=== PATIENT | male | born 1970 | race Caucasian/White ===

== ENCOUNTER 2018-07-19 15:48 | Observation (INO) ==
[2018-07-19] MEDS ORDERED: Tetanus/Diphtheria Toxoid Adult Vaccine Inj 0.5 ML Vial IM ONE (18:27)
[2018-07-19] MEDS ORDERED: Lidocaine 1% Inj 50 ML Vial INFILTRATN ONE (18:27)
[2018-07-19] MEDS ORDERED: Morphine Inj 4 MG/ML Vial IV.PUSH ONE ×2 (18:27→20:53)
[2018-07-19] MEDS ORDERED: Clindamycin 600 mg/NS Premix 600 MG/50 ML PIGGYBACK IV.SIG ONE (18:29)
[2018-07-19] MEDS ORDERED: Piperacil/Tazo 3.375 GM Premix 50 ML IV.SIG ONE (18:55)
[2018-07-19] MEDS ORDERED: Vancomycin Inj 1,000 MG in Sodium Chlor 0.9% Inj 250 ML IV.SIG ONE (18:55)
--- NOTE | 2018-07-19 18:57 | XR ---
EXAM DATE: 07/19/2018 6:52 PM EST AGE/SEX: 47 years / Male INDICATIONS: Right hand pain and swelling near 1st digit mcpj after getting a splinter in his skin t here a few days ago. CLINICAL DATA: This is the patient's initial encounter. Patient reports that signs and symptoms have been present for 4 - 6 days and indicates a pain score of 8/10. MEDICAL/SURGICAL HISTORY: None. None. COMPARISON: No prior exams available for comparison. FINDINGS: Soft tissue swelling is noted between first and second digits. No radiopaque foreign body is noted. O ld healed fracture involving the right fifth metacarpal is noted. There is no acute fracture or dislo cation. CONCLUSION: 1. Soft tissue swelling between the first and second digits with no evidence of radiopaque foreign b radha. 2. No acute fracture or dislocation. Electronically signed by: Walter Parmar MD 07/19/2018 6:55 PM EST
[2018-07-19 19:02] LABS: Baso # (Auto) 0.1 th/mm3 (0.0-0.2); Baso % (Auto) 0.5 % (0.0-2.0); Eos # (Auto) 0.2 th/mm3 (0.0-0.4); Eos % (Auto) 2.1 % (0.0-4.0); Hematocrit 46.2 % (39.0-51.0); Hemoglobin 15.8 gm/dL (13.0-17.0); Lymph # (Auto) 1.9 th/mm3 (1.0-4.8); Lymph % (Auto) 18.5 % (9.0-44.0); Mean Corpuscular HGB Conc 34.3 % (32.0-36.0); Mean Corpuscular Hemoglobin 32.5 pg (27.0-34.0); Mean Corpuscular Volume 94.9 fL (80.0-100.0); Mean Platelet Volume 7.9 fL (7.0-11.0); Mono # (Auto) 1.1 th/mm3 (0.0-0.9); Mono % (Auto) 10.8 % (0.0-8.0); Neut # (Auto) 6.9 th/mm3 (1.8-7.7); Neut % (Auto) 68.1 % (16.0-70.0); Platelet Count 193 th/mm3 (150-450); Red Blood Count 4.87 mil/mm3 (4.50-5.90); White Blood Count 10.1 th/mm3 (4.0-11.0)
[2018-07-19 19:20] LABS: Carbon Dioxide 28.5 meq/L (21.0-32.0); Potassium 4.5 meq/L (3.5-5.1)
[2018-07-19] MEDS ORDERED: Gadobutrol PF 10 MMOL/10 ML Vial (for RAD) IV.SIG ONE (20:03)
--- NOTE | 2018-07-19 20:22 | MR ---
EXAM DATE: 07/19/2018 8:15 PM EST AGE/SEX: 47 years / Male INDICATIONS: Abscess. Right hand pain and swelling near 1st digit mcp joint after getting a splin ter in his skin there a few days ago. CLINICAL DATA: This is the patient's initial encounter. Patient reports that signs and symptoms have been present for 1 day and indicates a pain score of 6/10. MEDICAL/SURGICAL HISTORY: None. Tonsillectomy. Pyloric stenosis. Eye muscle attachement.Ulnar n erve repair. COMPARISON: [facility], HAND COMPLETE RIGHT MIN 3V, 07/19/2018. . TECHNIQUE: Multiplanar, multisequence MRI examination was performed without contrast and after the i ntravenous administration of 10cc ml Omniscan (gadodiamide) contrast as a single exam dose. FINDINGS: Marrow: There is homogeneous signal in the marrow of the visualized bones of the hand. Metacarpal-Phalangeal Joints: The MCP joints are unremarkable with no evidence of erosion, effusion, or malalignment. Interphalangeal Joints: The PIP and DIP joints are unremarkable with no evidence of erosion, effusio n or malalignment. Extensor Tendons: The visualized extensor tendons are intact. Flexor Tendons: The visualized flexor tendons are intact. Soft Tissues: Mild diffuse soft tissue edema involving the palmar aspect of the hand most notably me dially. Post Contrast: There are no abnormal areas of enhancement in the marrow, muscle or soft tissues on i mages obtained after intravenous administration of gadolinium. CONCLUSION: 1. Findings most consistent with cellulitis involving the medial plantar aspect of the hand. 2. No evidence for abscess or osteomyelitis. Electronically signed by: Nitin Hernandez MD 07/19/2018 8:21 PM EST
[2018-07-19] MEDS ORDERED: Ketorolac Inj 30 MG/ML (IVP) Vial IV.PUSH ONE (20:53)
--- NOTE | 2018-07-19 21:05 | P.HPFP ---
History of Present Illness Primary Care Physician: UNKNOWN <Dale Houston - 07/21/18 14:11> UNKNOWN <Yue Clinton - 07/19/18 21:05> History of Present Illness: Mr. Avina is a 47yom who presents for infection of the R hand. Last Saturday he got a splinter at the base of his R thumb, pulled a small piece of it out. Used hot soaks, peroxide, neosporin, Aleve for relief. morning he noted that it began to get more swollen, draining pus. This evening it began to get erythematous, decreased movement of the thumb. Denies any fevers, nausea, cough. 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, sober x12 years Drugs:None <Yue Clinton 07/19/18 21:40> - Diagnosis (1) Cellulitis of hand <Dale Houston - 07/21/18 14:11> (1) Cellulitis of hand <Yue Clinton 07/19/18 22:12> Review of Systems Constitutional: Denies chills, Denies fever(s) <Yue Clinton 07/19/18 21:40 > Cardiovascular: Denies chest pain, Denies fainting <Yue Clinton 07/19/18 21:40> Respiratory: Denies cough, Denies shortness of breath <Yue Clinton 21:40> Gastrointestinal: Denies nausea, Denies vomiting <Yue Clinton 07/19/18 21: 40> PMFSH - History History Provided By: Patient <Yue Clinton - 07/19/18 21:05> - Medical History Medical History: Medical History (Last Reviewed 07/19/18 @ 21:06 by MARIZA Valentino) Patient denies medical problems Pyloric stenosis <Dale Houston - 07/21/18 14:11> Medical History (Last Reviewed 07/19/18 @ 21:06 by MARIZA Valentino) Patient denies medical problems Pyloric stenosis <Yue Clinton 07/19/18 21:40> - Surgical History Surgical History: Surgical History (Last Reviewed 07/19/18 @ 21:06 by MARIZA Valentino) History of tonsillectomy <Dale Houston - 07/21/18 14:11> Surgical History (Last Reviewed 07/19/18 @ 21:06 by MARIZA Valentino) History of tonsillectomy <Yue Clinton 07/19/18 21:40> - Tobacco History Second Hand Smoke Exposure: No <Yue Clinton 07/19/18 21:05> Tobacco Use In Past 30 Days: Yes <Yue Clinton 07/19/18 21:05> Smoking Status: Current every day smoker <Yue Clinton 07/19/18 21:05> Tobacco Type: Smokeless Tobacco <Yue Clinton 07/19/18 21:05> - Alcohol History How Often Do You Have a Drink Containing Alcohol: Never <Yue Clinton 07/19 21:05> - Substance Use History Substance History: No History of Abuse <Yue Clinton 07/19/18 21:05> - Travel History Recent Travel in the [place] Within the Last 8 Weeks: No <Yue Clinton 21:05> Recent Travel Out of the Country Within the Last 8 Weeks: No <Yue Clinton 07/19/18 21:05> - Immunization History Tetanus Immunization: >5 Years <Yue Clinton 07/19/18 21:05> Medications and Allergies Allergies Allergy/AdvReac Type Severity Reaction Status Date / Time No Known Allergies Allergy Verified 07/19/18 16:00 <Dale Houston - 07/21/18 14:11> Home Medications Medication Instructions Recorded Confirmed Type No Known Home Medications 07/19/18 07/19/18 History <Dale Houston - 07/21/18 14:11> Active Medications: Active Medications Acetaminophen (Tylenol) 650 mg PO Q4H PRN PRN Reason: PAIN 1-10 OR TEMP > 100.4 F Hydrocodone Bitart/Acetaminophen (Miller 5/325) 1 tab PO Q4H PRN PRN Reason: PAIN SCALE 3 TO 5 Last Admin: 07/21/18 13:51 Dose: 1 tab Al Hydroxide/Mg Hydroxide (Milk Of Magnmiguelito Liq) 30 ml PO Q12H PRN PRN Reason: Mild Constipation Piperacillin/Tazobactam/Dextrose (Zosyn 3.375 Gm Premix) 50 mls @ 100 mls/hr IV.SIG Q6H [facility] Last Infusion: 07/21/18 10:38 Dose: Infused Vancomycin HCl 1,250 mg/ (Sodium Chloride) 262.5 mls @ 250 mls/hr IV.SIG Q12H [facility] Last Infusion: 07/21/18 04:44 Dose: Infused Miscellaneous Information ([facility] Ordered Lab Info) 0 each OTHER ONCE ONE Stop: 07/22/18 02:46 Naloxone HCl (Narcan Inj) 0.4 mg IV.PUSH UNSCH PRN PRN Reason: SEE LABEL COMMENTS Ondansetron HCl (Zofran Inj) 4 mg IV.PUSH Q6H PRN PRN Reason: NAUSEA OR VOMITING Pharmacy Profile Note (Vancomycin Consult Pharmacy) 1 each OTHER UNSCH PRN PRN Reason: Pharmacy to dose Povidone Iodine (Betadine 10% Oint) 1 applicatio TOPICAL ONCE ONE Stop: 07/21/18 15:01 Senna/Docusate Sodium (Rachel-Colace) 1 tab PO BID [facility] Last Admin: 07/21/18 09:56 Dose: 1 tab Sennosides (Senokot) 17.2 mg PO Q12H PRN PRN Reason: Moderate Constipation Sodium Chloride (Ns Flush) 2 ml IV.FLUSH BID [facility] Last Admin: 07/21/18 09:57 Dose: 2 ml Sodium Chloride (Ns Flush) 2 ml IV.FLUSH PRN PRN PRN Reason: FLUSH AFTER USING IV ACCESS <Dale Houston - 07/21/18 14:11> Exam Vital signs: Vital Signs 07/20/18 16:00 07/20/18 20:00 07/20/18 23:26 Temperature 97.9 F 97.7 F 98 F Pulse Rate 57 L 72 69 Respiratory Rate 16 17 16 Blood Pressure 136/82 142/81 H 125/76 Pulse Oximetry 98 95 96 07/21/18 04:00 07/21/18 08:00 Temperature 97.9 F 98.1 F Pulse Rate 70 65 Respiratory Rate 16 16 Blood Pressure 129/79 112/67 Pulse Oximetry 96 96 Intake & Output 07/20/18 07/21/18 07/21/18 18:59 06:59 18:59 Intake Total 966.5 / 966.5 362.5 / 362.5 50 / 50 Balance 966.5 / 966.5 362.5 / 362.5 50 / 50 Intake: IV 416.5 / 416.5 362.5 / 362.5 50 / 50 Cleocin Inj 600 MG In NS Inj 104 / 104 100 ML @ 200 mls/hr IV.SIG Q8H [facility] Rx#:[id number] Zosyn 3.375 GM Premix 50 ML @ 50 / 50 100 / 100 50 / 50 100 mls/hr IV.SIG Q6H [facility] Rx#: [id number] Vancomycin Inj 1,250 MG In NS 262.5 / 262.5 262.5 / 262.5 Inj 250 ML @ 250 mls/hr IV.SIG Q12H [facility] Rx#:[id number] Oral 550 / 550 Other: # Voids 3 Date of Last Bowel Movement 07/19/18 07/19/18 <Dale Houston - 07/21/18 14:11> Vital Signs 07/19/18 15:56 Temperature 98.5 F Pulse Rate 93 H Respiratory Rate 16 Blood Pressure 136/68 Pulse Oximetry 98 Intake & Output 07/19/18 07/19/18 07/20/18 06:59 18:59 06:59 Weight 99.79 kg <Yue Clinton - 07/19/18 21:05> Narrative: GENERAL: Adult male lying in bed, resting comfortably, no acute distress. SKIN: Erythematous area surrounding the base of the right thumb, tender to touch , open wound about 2 cm in length draining purulent material. Warmth of the thenar area. HEAD: Normocephalic. EYES: No scleral icterus. No injection or drainage. NECK: Supple, trachea midline. No JVD. CARDIOVASCULAR: Regular rate and rhythm without murmurs, gallops, or rubs. Radial pulses intact bilaterally. RESPIRATORY: Breath sounds equal bilaterally. No accessory muscle use. MUSCULOSKELETAL: No cyanosis, or edema. Decreased movement of right thumb and right fourth finger <Yue Clinton - 07/19/18 21:40> Results - Labs Result diagrams: 07/21/18 05:28 07/21/18 05:28 <Dale Houston - 07/21/18 14:11> Abnormal lab results 07/21/18 07/21/18 Range/Units 05:28 05:28 RBC 4.40 L (4.50-5.90) mil/mm3 Josephine % (Auto) 10.2 H (0.0-8.0) % Eos % (Auto) 6.8 H (0.0-4.0) % Chloride 108 H (98-107) meq/L Estimated GFR 66 L (>89) mL/min Random Glucose 114 H (74-106) mg/dL Calcium 8.0 L D (8.5-10.1) mg/dL Short CBC 07/21/18 Range/Units 05:28 WBC 5.4 (4.0-11.0) th/mm3 Hgb 14.8 (13.0-17.0) gm/dL Hct 41.8 (39.0-51.0) % Plt Count 172 (150-450) th/mm3 [facility] 07/21/18 05:28 Sodium 140 Potassium 4.5 Chloride 108 H Carbon Dioxide 26.9 BUN 17 Creatinine 1.19 Calcium 8.0 L D <Dale Houston - 07/21/18 14:11> Abnormal lab results 07/19/18 07/19/18 Range/Units 18:49 18:49 Josephine % (Auto) 10.8 H (0.0-8.0) % Josephine # (Auto) 1.1 H (0.0-0.9) th/mm3 Estimated GFR 61 L (>89) mL/min Short CBC 07/19/18 Range/Units 18:49 WBC 10.1 (4.0-11.0) th/mm3 Hgb 15.8 (13.0-17.0) gm/dL Hct 46.2 (39.0-51.0) % Plt Count 193 (150-450) th/mm3 [facility] 07/19/18 18:49 Sodium 139 Potassium 4.5 Chloride 105 Carbon Dioxide 28.5 BUN 17 Creatinine 1.28 Calcium 9.0 <Yeu Clinton - 07/19/18 21:05> - Imaging Impressions Hand X-Ray 07/19/18 18:29 CONCLUSION: 1. Soft tissue swelling between the first and second digits with no evidence of radiopaque foreign body. 2. No acute fracture or dislocation. Hand MRI 07/19/18 18:54 CONCLUSION: 1. Findings most consistent with cellulitis involving the medial plantar aspect of the hand. 2. No evidence for abscess or osteomyelitis. <Yue Clinton - 07/19/18 21:05> Caprini VTE Risk Assessment Caprini VTE Risk Assessment: No/Low Risk (score <= 1) <Yue Clinton - 21:40> Caprini Risk Assessment Model: Point Value = 1 Point Value = 2 Point Value = 3 Point Value = 5 Age 41-60 Minor surgery BMI > 25 kg/m2 Swollen legs Varicose veins or History of unexplained or recurrent spontaneous Oral contraceptives or hormone replacement Sepsis (< 1 month) Serious lung disease, including pneumonia (< 1 month) Abnormal pulmonary function Acute myocardial infarction Congestive heart failure (< 1 month) History of inflammatory bowel disease Medical patient at bed rest Age 61-74 Arthroscopic surgery Major open surgery (> 45 min) Laparoscopic surgery (> 45 min) Malignancy Confined to bed (> 72 hours) Immobilizing plaster cast Central venous access Age >= 75 History of VTE Family history of VTE Factor V Leiden Prothrombin [id number] Lupus anticoagulant Anticardiolipin antibodies Elevated serum homocysteine Heparin-induced thrombocytopenia Other congenital or acquired thrombophilia Stroke (< 1 month) Elective arthroplasty Hip, pelvis, or leg fracture Acute spinal cord injury (< 1 month) <Dale Houston - 07/21/18 14:11> Point Value = 1 Point Value = 2 Point Value = 3 Point Value = 5 Age 41-60 Minor surgery BMI > 25 kg/m2 Swollen legs Varicose veins or History of unexplained or recurrent spontaneous Oral contraceptives or hormone replacement Sepsis (< 1 month) Serious lung disease, including pneumonia (< 1 month) Abnormal pulmonary function Acute myocardial infarction Congestive heart failure (< 1 month) History of inflammatory bowel disease Medical patient at bed rest Age 61-74 Arthroscopic surgery Major open surgery (> 45 min) Laparoscopic surgery (> 45 min) Malignancy Confined to bed (> 72 hours) Immobilizing plaster cast Central venous access Age >= 75 History of VTE Family history of VTE Factor V Leiden Prothrombin [id number] Lupus anticoagulant Anticardiolipin antibodies Elevated serum homocysteine Heparin-induced thrombocytopenia Other congenital or acquired thrombophilia Stroke (< 1 month) Elective arthroplasty Hip, pelvis, or leg fracture Acute spinal cord injury (< 1 month) <Yue Clinton - 07/19/18 21:05> Prophylaxis Regimen: Total Risk Factor Score Risk Level Prophylaxis Regimen 0-1 Low Early ambulation 2 Moderate Order ONE of the following: *Sequential Compression Device (SCD) *Heparin 5000 units SQ BID 3-4 Higher Order ONE of the following medications: *Heparin 5000 units SQ TID *Enoxaparin/Lovenox 40 mg SQ daily (WT < 150 kg, CrCl > 30 mL/min) *Enoxaparin/Lovenox 30 mg SQ daily (WT < 150 kg, CrCl > 10-29 mL/min) *Enoxaparin/Lovenox 30 mg SQ BID (WT < 150 kg, CrCl > 30 mL/min) AND/OR *Sequential Compression Device (SCD) 5 or more Highest Order ONE of the following medications: *Heparin 5000 units SQ TID (Preferred with Epidurals) *Enoxaparin/Lovenox 40 mg SQ daily (WT < 150 kg, CrCl > 30 mL/min) *Enoxaparin/Lovenox 30 mg SQ daily (WT < 150 kg, CrCl > 10-29 mL/min) *Enoxaparin/Lovenox 30 mg SQ BID (WT < 150 kg, CrCl > 30 mL/min) AND *Sequential Compression Device (SCD) <Dale Houston - 07/21/18 14:11> Total Risk Factor Score Risk Level Prophylaxis Regimen 0-1 Low Early ambulation 2 Moderate Order ONE of the following: *Sequential Compression Device (SCD) *Heparin 5000 units SQ BID 3-4 Higher Order ONE of the following medications: *Heparin 5000 units SQ TID *Enoxaparin/Lovenox 40 mg SQ daily (WT < 150 kg, CrCl > 30 mL/min) *Enoxaparin/Lovenox 30 mg SQ daily (WT < 150 kg, CrCl > 10-29 mL/min) *Enoxaparin/Lovenox 30 mg SQ BID (WT < 150 kg, CrCl > 30 mL/min) AND/OR *Sequential Compression Device (SCD) 5 or more Highest Order ONE of the following medications: *Heparin 5000 units SQ TID (Preferred with Epidurals) *Enoxaparin/Lovenox 40 mg SQ daily (WT < 150 kg, CrCl > 30 mL/min) *Enoxaparin/Lovenox 30 mg SQ daily (WT < 150 kg, CrCl > 10-29 mL/min) *Enoxaparin/Lovenox 30 mg SQ BID (WT < 150 kg, CrCl > 30 mL/min) AND *Sequential Compression Device (SCD) <Yue Clinton - 07/19/18 21:05> Assessment and Plan - Assessment (1) Cellulitis of hand Code(s): L03.119 - Cellulitis of unspecified part of limb Status: Acute <Dale Houston - 07/21/18 14:11> (1) Cellulitis of hand Code(s): L03.119 - Cellulitis of unspecified part of limb Status: Acute Plan: Purulent drainage of wound at base of right thumb, palmar aspect. Hand MRI showing findings consistent with cellulitis with no evidence of abscess or osteomyelitis. Ed physician spoke with Dr. Holt who plans to evaluate patient in the a.m. Patient given 1 dose of Zosyn 3.375 g and vancomycin 1 g in ED Received tetanus booster in ED -Clindamycin 600 mg every 8 hours IV -Acetaminophen 650 mg every 4 hours as needed for fever/ pain -Miller 5/325 every 4 hours as needed for pain -N.p.o. after midnight -Follow-up Dr. Holt's recommendations in the a.m. -Follow-up blood cultures <Yue Clinton - 07/19/18 22:12> - Assessment and Plan Discussed Condition With: Dr Yusuf <Yue Clinton - 07/19/18 21:40> - Attending Attestation See the residents documentation for details. I saw and evaluated the patient regarding the nolasco portions of this evaluation and agree with the residents findings and plans as written. Parts of this note were created using [employer] voice recognition software program. While efforts were made to correct any mistakes made by this software, some mistakes, errors, and omissions may remain in the final note that were not caught when the note was originally created. Plan of care was discussed and agreed upon with the patient as specifically documented in the above note. An opportunity to ask questions with explanation was provided. Patient voiced understanding on all information reviewed and discussed. <Dale Houston - 07/21/18 14:11>
--- NOTE | 2018-07-19 21:11 | ED ---
HPI General Chief Complaint: Extremity Injury, Upper Stated Complaint: R hand Swelling Time Seen by Provider: 07/19/18 16:02 Source: patient and family Mode of arrival: ambulatory Limitations: no limitations History of Present Illness HPI narrative: 47-year-old male presents to the ED for evaluation of right hand infection. Patient reports that he has had this for about 1 week now. Per patient about a week ago he was at a local hardware store and he was holding a piece of wood. Per patient he believes he got a splinter into his hand. Per patient he believes there were 2 pieces and he was able to remove one but he believes that he still had one inside. Ever since has been having redness and swelling on the wound. Per patient needs progressively getting worse worse today. He has been having drainage from the wound on the webspace between the first and second digit. Denies any trauma other than stated above. Per patient the pain currently is 8 out of 10. Denies any fevers chills or sweats. No history of IV drug abuse. No medical issues. No urinary or bowel movement issues. Per patient the swelling has progressed to the rest. Has not seen anybody for this. No numbness, tingling, weakness. Related Data Home Medications Medication Instructions Recorded Confirmed No Known Home Medications 07/19/18 07/19/18 Allergies Allergy/AdvReac Type Severity Reaction Status Date / Time No Known Allergies Allergy Verified 07/19/18 16:00 Review of Systems ROS: all other systems reviewed are negative [facility] Medical History Medical History Patient denies medical problems (Acute) Pyloric stenosis (Acute) Surgical History Surgical History History of tonsillectomy (Acute) Social History Social History Substance History: No History of Abuse Second Hand Smoke Exposure: No Smoking Status: Current every day smoker Tobacco Type: Smokeless Tobacco How Often Do You Have a Drink Containing Alcohol: Never Recent Travel in [facility] within the Last 8 Weeks: No Recent Out of Country Travel within the Last 8 Weeks: No Immunization History Tetanus Immunization: >5 Years Exam Narrative Exam Narrative: GENERAL: Well appearing SKIN: Focused skin assessment warm/dry. HEAD: Atraumatic. Normocephalic. EYES: Pupils equal and round. No scleral icterus. No injection or drainage. ENT: No nasal bleeding or discharge. Mucous membranes pink and moist. Tongue is midline. No uvula deviation. NECK: Trachea midline. No JVD. CARDIOVASCULAR: Regular rate and rhythm. No murmur appreciated. RESPIRATORY: No accessory muscle use. Clear to auscultation. Breath sounds equal bilaterally. GASTROINTESTINAL: Abdomen soft, non-tender, nondistended. Hepatic and splenic margins not palpable. MUSCULOSKELETAL: No obvious deformities. No clubbing. No cyanosis. No edema. full ROM of the upper and lower extrempatities bilaterally. 2+ pulses. patient has an area of erythema and swelling with warmness to the right hand on the thinear aspect fo the right hand. Very tender to touch. Has a small linear opening on the webspace around the joint of the right finger. Draining purulent material. but no obvious mass noted around it. NEUROLOGICAL: Awake and alert. No obvious cranial nerve deficits. Motor grossly within normal limits. Normal speech. PSYCHIATRIC: Appropriate mood and affect; insight and judgment normal. Course Initial Documented Vital Signs Temperature 98.5 F 07/19/18 15:56 Pulse Rate 93 H 07/19/18 15:56 Respiratory Rate 16 07/19/18 15:56 Blood Pressure 136/68 07/19/18 15:56 Pulse Oximetry 98 07/19/18 15:56 Last Documented Vital Signs Temperature 97.9 F 07/20/18 16:00 Pulse Rate 57 L 07/20/18 16:00 Respiratory Rate 16 07/20/18 16:00 Blood Pressure 136/82 07/20/18 16:00 Pulse Oximetry 98 07/20/18 16:00 Medical Decision Making HOLGER Attestation HOLGER supervised visit: Yes Attestation: I, Dr. Walton, have reviewed the advance practice practitioner's documentation and am in agreement, met with the patient face to face, made the diagnosis, and the medical decision making was done by me. *My assessment and Findings: Right hand cellulitis versus abscess MDM Narrative Medical decision making narrative: 47-year-old male that presents to the ED for evaluation of infection to the right hand. Patient was properly examined and was found to have signs and symptoms concerning for abscess and cellulitis of the right hand. My attending Dr. Walton evaluate the patient himself. He recommends MRI and labs. He does not recommend that we drain the hand until MRI comes back. He also states that he would not recommend that we do this in the ER and this should be done by a hand specialist. At this time labs and imaging were done. Labs and imaging show what appears to be cellulitis of the right hand but no obvious sign of abscess per MRI report. Case was discussed with Dr. Holt over the phone who agrees with plan. He states that at this time patient can be admitted to medicine and he will consult tomorrow to see if anything else needs to be done. Case discussed with the resident and agree admission to their service. Medical Screen Exam Complete: Yes Emergency Medical Condition: Yes Medical Records Medical records reviewed: Yes I reviewed the patient's medical records. Lab Data Lab results reviewed: Yes I reviewed the patient's lab results. Result diagrams: 07/20/18 07:32 07/19/18 18:49 Lab Results 07/19/18 07/19/18 07/20/18 Range/Units 18:49 18:49 07:32 WBC 10.1 6.5 (4.0-11.0) th/mm3 RBC 4.87 4.42 L (4.50-5.90) mil/mm3 Hgb 15.8 14.6 (13.0-17.0) gm/dL Hct 46.2 42.4 (39.0-51.0) % MCV 94.9 96.0 (80.0-100.0) fL MCH 32.5 32.9 (27.0-34.0) pg MCHC 34.3 34.3 (32.0-36.0) % RDW 13.0 12.8 (11.6-17.2) % Plt Count 193 158 (150-450) th/mm3 MPV 7.9 7.9 (7.0-11.0) fL Neut % (Auto) 68.1 63.8 (16.0-70.0) % Lymph % (Auto) 18.5 23.2 (9.0-44.0) % Brown % (Auto) 10.8 H 9.6 H (0.0-8.0) % Eos % (Auto) 2.1 3.0 (0.0-4.0) % Baso % (Auto) 0.5 0.4 (0.0-2.0) % Neut # (Auto) 6.9 4.1 (1.8-7.7) th/mm3 Lymph # (Auto) 1.9 1.5 (1.0-4.8) th/mm3 Brown # (Auto) 1.1 H 0.6 (0.0-0.9) th/mm3 Eos # (Auto) 0.2 0.2 (0.0-0.4) th/mm3 Baso # (Auto) 0.1 0.0 (0.0-0.2) th/mm3 WBC Differential . . Differential Comment Auto diff final Auto diff final Sodium 139 (136-145) meq/L Potassium 4.5 (3.5-5.1) meq/L Chloride 105 (98-107) meq/L Carbon Dioxide 28.5 (21.0-32.0) meq/L Anion Gap 6 (5-15) meq/L BUN 17 (7-18) mg/dL Creatinine 1.28 (0.60-1.30) mg/dL Estimated GFR 61 L (>89) mL/min Random Glucose 102 (74-106) mg/dL Calcium 9.0 (8.5-10.1) mg/dL Imaging Data Attestation: I personally reviewed and interpreted this imaging study as follows : Radiologist's impression: Hand X-Ray 07/19/18 18:29 CONCLUSION: 1. Soft tissue swelling between the first and second digits with no evidence of radiopaque foreign body. 2. No acute fracture or dislocation. Hand MRI 07/19/18 18:54 CONCLUSION: 1. Findings most consistent with cellulitis involving the medial plantar aspect of the hand. 2. No evidence for abscess or osteomyelitis. Discharge Plan Discharge Disposition Patient Disposition: 30 Still Patient Discharge Details Diagnosis: Cellulitis of hand Physicians Team ED Provider: Jason Walton ED Midlevel Provider: Juan Carlos Savage Primary Care Provider: UNKNOWN, Attending Provider: Dale Houston Other Providers: Margarita Holt Status ED Status: Left Department Discharge Information Discharge Date/Time: 07/19/18 23:06
[2018-07-19] MEDS ORDERED: Acetaminophen 325 MG Tablet PO PRN (21:28)
[2018-07-19] MEDS ORDERED: Naloxone Inj 0.4 MG/ML Vial IV.PUSH PRN (21:29)
[2018-07-20] MEDS ORDERED: Ketorolac Inj 30 MG/ML (IVP) Vial IV.PUSH ONE (01:46)
[2018-07-20 08:02] LABS: Baso % (Auto) 0.4 % (0.0-2.0); Eos # (Auto) 0.2 th/mm3 (0.0-0.4); Hematocrit 42.4 % (39.0-51.0); Hemoglobin 14.6 gm/dL (13.0-17.0); Lymph # (Auto) 1.5 th/mm3 (1.0-4.8); Lymph % (Auto) 23.2 % (9.0-44.0); Mean Corpuscular HGB Conc 34.3 % (32.0-36.0); Mean Corpuscular Hemoglobin 32.9 pg (27.0-34.0); Mean Platelet Volume 7.9 fL (7.0-11.0); Mono # (Auto) 0.6 th/mm3 (0.0-0.9); Mono % (Auto) 9.6 % (0.0-8.0); Neut # (Auto) 4.1 th/mm3 (1.8-7.7); Neut % (Auto) 63.8 % (16.0-70.0); Platelet Count 158 th/mm3 (150-450); Red Blood Count 4.42 mil/mm3 (4.50-5.90); Red Cell Distribution Width 12.8 % (11.6-17.2); White Blood Count 6.5 th/mm3 (4.0-11.0)
[2018-07-20] MEDS: Senna/Docusate Sodium 8.6/50 MG Tablet PO SCH ×2 (10:31→20:34)
[2018-07-20] MEDS ORDERED: Vancomycin Consult Pharmacy OTHER PRN (11:50)
--- NOTE | 2018-07-20 11:50 | P.PNFP ---
Subjective Interval history: Patient states that his hand feels better but it still hurts. He is eager to be evaluated by hand surgery so that he can know what the plan is. No fever or chills overnight. <DinahKandace Nasreen - 07/20/18 13:05> Results - Labs Result diagrams: 07/21/18 05:28 07/21/18 05:28 <Dale Houston - 07/21/18 14:58> Abnormal lab results 07/21/18 07/21/18 Range/Units 05:28 05:28 RBC 4.40 L (4.50-5.90) mil/mm3 [place] % (Auto) 10.2 H (0.0-8.0) % Eos % (Auto) 6.8 H (0.0-4.0) % Chloride 108 H (98-107) meq/L Estimated GFR 66 L (>89) mL/min Random Glucose 114 H (74-106) mg/dL Calcium 8.0 L D (8.5-10.1) mg/dL Short CBC 07/21/18 Range/Units 05:28 WBC 5.4 (4.0-11.0) th/mm3 Hgb 14.8 (13.0-17.0) gm/dL Hct 41.8 (39.0-51.0) % Plt Count 172 (150-450) th/mm3 BMP 07/21/18 05:28 Sodium 140 Potassium 4.5 Chloride 108 H Carbon Dioxide 26.9 BUN 17 Creatinine 1.19 Calcium 8.0 L D <Dale Houston - 07/21/18 14:58> Abnormal lab results 07/19/18 07/19/18 07/20/18 Range/Units 18:49 18:49 07:32 RBC 4.42 L (4.50-5.90) mil/mm3 [place] % (Auto) 10.8 H 9.6 H (0.0-8.0) % [place] # (Auto) 1.1 H (0.0-0.9) th/mm3 Estimated GFR 61 L (>89) mL/min Short CBC 07/19/18 07/20/18 Range/Units 18:49 07:32 WBC 10.1 6.5 (4.0-11.0) th/mm3 Hgb 15.8 14.6 (13.0-17.0) gm/dL Hct 46.2 42.4 (39.0-51.0) % Plt Count 193 158 (150-450) th/mm3 BMP 07/19/18 18:49 Sodium 139 Potassium 4.5 Chloride 105 Carbon Dioxide 28.5 BUN 17 Creatinine 1.28 Calcium 9.0 <RashadnewKandace U - 07/20/18 11:50> - Imaging Impressions Hand X-Ray 07/19/18 18:29 CONCLUSION: 1. Soft tissue swelling between the first and second digits with no evidence of radiopaque foreign body. 2. No acute fracture or dislocation. Hand MRI 07/19/18 18:54 CONCLUSION: 1. Findings most consistent with cellulitis involving the medial plantar aspect of the hand. 2. No evidence for abscess or osteomyelitis. <DinahKandace U - 07/20/18 11:50> Physical Exam Vital signs: Vital Signs 07/20/18 16:00 07/20/18 20:00 07/20/18 23:26 Temperature 97.9 F 97.7 F 98 F Pulse Rate 57 L 72 69 Respiratory Rate 16 17 16 Blood Pressure 136/82 142/81 H 125/76 Pulse Oximetry 98 95 96 07/21/18 04:00 07/21/18 08:00 Temperature 97.9 F 98.1 F Pulse Rate 70 65 Respiratory Rate 16 16 Blood Pressure 129/79 112/67 Pulse Oximetry 96 96 Intake & Output 07/20/18 07/21/18 07/21/18 18:59 06:59 18:59 Intake Total 966.5 / 966.5 362.5 / 362.5 50 / 50 Balance 966.5 / 966.5 362.5 / 362.5 50 / 50 Intake: IV 416.5 / 416.5 362.5 / 362.5 50 / 50 Cleocin Inj 600 MG In NS Inj 104 / 104 100 ML @ 200 mls/hr IV.SIG Q8H [facility] Rx#:[id number] Zosyn 3.375 GM Premix 50 ML @ 50 / 50 100 / 100 50 / 50 100 mls/hr IV.SIG Q6H [facility] Rx#: [id number] Vancomycin Inj 1,250 MG In NS 262.5 / 262.5 262.5 / 262.5 Inj 250 ML @ 250 mls/hr IV.SIG Q12H [facility] Rx#:[id number] Oral 550 / 550 Other: # Voids 3 Date of Last Bowel Movement 07/19/18 07/19/18 <Dale Houston - 07/21/18 14:58> Vital Signs 07/19/18 15:56 07/20/18 00:00 07/20/18 04:00 Temperature 98.5 F 97.7 F 98.4 F Pulse Rate 93 H 61 57 L Respiratory Rate 16 16 17 Blood Pressure 136/68 132/76 125/66 Pulse Oximetry 98 98 99 07/20/18 08:00 Temperature 98.0 F Pulse Rate 60 Respiratory Rate 16 Blood Pressure 110/67 Pulse Oximetry 96 Intake & Output 07/19/18 07/20/18 07/20/18 18:59 06:59 18:59 Intake Total 404 / 404 104 / 104 Balance 404 / 404 104 / 104 Weight 99.79 kg Intake: IV 404 / 404 104 / 104 Cleocin Inj 600 MG In NS Inj 104 / 104 104 / 104 100 ML @ 200 mls/hr IV.SIG Q8H [facility] Rx#:[id number] Zosyn 3.375 GM Premix 50 ML @ 50 / 50 100 mls/hr IV.SIG ONCE ONE Rx#: [id number] Vancomycin Inj 1,000 MG In NS 250 / 250 Inj 250 ML @ 250 mls/hr IV.SIG ONCE ONE Rx#:[id number] Other: # Voids 3 Date of Last Bowel Movement 07/20/18 <Kandace Nix U - 07/20/18 13:05> Narrative: GENERAL: Adult male sitting up in bed, resting comfortably, no acute distress. SKIN: Erythematous area surrounding the base of the right thumb, moderately tender to touch, open wound about 2 cm in length draining purulent material HEAD: Normocephalic. EYES: No scleral icterus. No injection or drainage. NECK: Supple, trachea midline. No JVD. CARDIOVASCULAR: Regular rate and rhythm without murmurs, gallops, or rubs. Radial pulses intact bilaterally. RESPIRATORY: Breath sounds equal bilaterally. No accessory muscle use. MUSCULOSKELETAL: No cyanosis, or edema. Able to wiggle thumb and oppose to the fourth finger <Kandace Nix U - 07/20/18 13:05> Assessment and Plan - Assessment (1) Cellulitis of hand Code(s): L03.119 - Cellulitis of unspecified part of limb Status: Acute <Dale Houston - 07/21/18 14:58> (1) Cellulitis of hand Code(s): L03.119 - Cellulitis of unspecified part of limb Status: Acute Plan: Purulent drainage of wound at base of right thumb, palmar aspect Hand MRI showed findings consistent with cellulitis with no evidence of abscess or osteomyelitis Hand surgeon Dr. Holt plans to evaluate patient in the a.m. and will determine if he needs bedside I&D Patient given 1 dose of Zosyn 3.375 g and vancomycin 1 g in ED, will continue these antibiotics (he did receive one dose of Clindamycin 600mg IV today am) Received tetanus booster in ED Afebrile, WBC wnl, blood cultures - negative x 1 day -Vancomycin 1g q24h with pharmacy consult to adjust dosing accordingly -Acetaminophen 650 mg every 4 hours as needed for fever/ pain -[place] 5/325 every 4 hours as needed for pain -Rachel-Colace prn constipation while on opioids -Regular adult diet -Oral fluids -Monitor electrolytes and replace as needed <Kandace Nix - 07/20/18 13:12> - Assessment and Plan Discussed Condition With: Seen and examined with Dr. Houston (attending), Dr. Yusuf - PGY2, and Dr. Busby - PGY-1 <Kandace Nix - 07/20/18 13:05> Discharge Planning: Discharge pending hand surgery evaluation <Kandace Nix - 07/20/18 13:18> - Attending Attestation See the residents documentation for details. I saw and evaluated the patient regarding the nolasco portions of this evaluation and agree with the residents findings and plans as written. Parts of this note were created using [employer] voice recognition software program. While efforts were made to correct any mistakes made by this software, some mistakes, errors, and omissions may remain in the final note that were not caught when the note was originally created. Plan of care was discussed and agreed upon with the patient as specifically documented in the above note. An opportunity to ask questions with explanation was provided. Patient voiced understanding on all information reviewed and discussed. <Dale Houston - 07/21/18 14:58>
[2018-07-20] MEDS ORDERED: Piperacil/Tazo 3.375 GM Premix 50 ML IV.SIG SCH (11:51)
[2018-07-20] MEDS: Piperacil/Tazo 3.375 GM Premix 50 ML IV.SIG SCH ×2 (14:18→20:35)
[2018-07-20] MEDS ORDERED: Lidocaine 2%/Epinephrine 1:100,000 Inj 20 ML Vial NERV BLOCK ONE (14:30)
[2018-07-20] MEDS: Vancomycin Inj 1,250 MG in Sodium Chlor 0.9% Inj 250 ML IV.SIG SCH (15:14)
--- NOTE | 2018-07-20 19:16 | MB ---
cc: Margarita Holt MD DATE: 07/19/2018 REQUESTING PHYSICIAN: Dr. Dale Houston. REASON FOR CONSULTATION: Infection of right hand. HISTORY OF PRESENT ILLNESS: The patient is a 47-year-old male who presented to the emergency room last evening complaining of pain and swelling of his right hand. He notes that he was in a lumber store when he was running his head on the lumber. A large splinter from the wood went into his hand. He believes that he removed it. This occurred a week ago and over this time, he has developed pain, swelling and drainage. In the emergency room, the patient had a workup. The x-ray was negative for a foreign body and the MRI was also negative for foreign body. Over the last 18 hours, the patient has been in the hospital. His swelling has gone down significantly, but the drainage continues. Consultation is requested regarding evaluation and treatment of this injury. PAST MEDICAL HISTORY AND REVIEW OF SYSTEMS: A 12-system review is all negative. He denies high blood pressure, diabetes, heart disease, kidney disease, liver disease or diseases of infectious etiology except as it pertains to this admission. PAST SURGICAL HISTORY: Pyloric stenosis, has history of tonsillectomy. SOCIAL HISTORY: The patient smokes every day. SOCIAL HISTORY: Denies drug abuse. MEDICATIONS: On the chart. The patient does have a history of migraines. PHYSICAL EXAMINATION: GENERAL: The patient is lying comfortably on the stretcher. VITAL SIGNS: His temperature is 98, pulse is 62, respirations are 16, blood pressure is 120/77 with a mean of 91. His pulse oximetry is 96% on room air. HEENT: Extraocular muscles are intact. His pupils are equal, round and reactive to light. His mouth is clear. NECK: Supple without masses. LUNGS: Clear. HEART: Regular rate and rhythm. EXTREMITIES: Examination of the upper extremities reveals a draining wound in the first webspace just adjacent to the thumb. The open area measures approximately 1.5 cm in length and it goes across the webspace in an AP direction. There is a small amount of redness around the area, but this is minimal. There is no odor. LABORATORY DATA: Review of the laboratory data, the patient's white count on admission was 10.1 and there was no shift at the time. The white count this morning is 6.5, and again there is no shift. A culture was obtained, but this is still pending. The x-rays and MRI are reviewed and I do not see any evidence of a foreign body. IMPRESSION: Possible foreign body with cellulitis and an open wound of the right hand. PLAN: The patient is advised that we will explore his hand under local anesthesia in the emergency room and if there is a foreign body, we will remove it. The hand will be packed. The wound will not be closed. The patient understands and accepts the risks and complications of the procedure. Margarita Holt MD LHRosio/sv , 03:43 PM , 03:52 PM
--- NOTE | 2018-07-20 19:27 | MP ---
cc: Margarita Holt MD DATE OF OPERATION: 07/20/2018 PREOPERATIVE DIAGNOSIS: Possible foreign body with draining wound of right hand. POSTOPERATIVE DIAGNOSIS: Draining wound of right hand. PROCEDURE PERFORMED: Exploration of wound of the right hand with excisional debridement of the skin and subcutaneous tissue and packing. ANESTHESIA: Local. SURGEON: Calos Holt MD INDICATIONS: A 47-year-old male who had a piece of wood penetrate his hand first webspace approximately 1 week ago. The patient did remove 1 piece of wood and felt there might be a second piece in there. The patient came in last evening where an MRI and x-ray were performed. These were negative for foreign body. In addition, his white count was within normal limits. FINDINGS: There was significant amount of inflammatory tissue within the wound itself, but no evidence of a foreign body. I spent approximately 25 minutes exploring the wound, debriding it excisionally and looking for foreign material, none was found. The whole operative time was approximately 45 minutes. PROCEDURE: The patient was seen in the emergency room and the operation was performed. He was in supine position. His right hand was prepped with Betadine and draped in the usual sterile fashion. Lidocaine 2% with epinephrine 1:100,000 was injected as a field block around the wound. Once the anesthetic had taken effect, the wound was explored very gingerly looking for the foreign body. Part of the wound was opened and part was excised, this was some skin as well as some subcutaneous tissue which appeared to be devitalized. The wound was explored under loupe magnification with independent light source. I explored in all directions and was unable to find any wood. There was some evidence of reactionary fibrinous material, but no foreign body. Once I felt confident that there was no residual foreign body in there and the wound had been flushed copiously with saline, I packed it with 1 inch iodoform packing. Povidone iodine ointment and a dry dressing with a nonstick dressing. The patient was discharged back to the care of the ER staff. POSTOPERATIVE INSTRUCTIONS: Include keep the arm elevated. Removing the dressing in the morning after wetting it and then soaking it once or twice a day in a dilute solution of Betadine and water, applying the povidone iodine ointment and a nonstick dressing. The patient is advised to return to my office as needed on July 24. He is to call the office for an appointment. MD ANA Munoz/luis enrique , 03:47 PM , 03:55 PM
[2018-07-20] MEDS ORDERED: Vancomycin Inj 1,000 MG in Sodium Chlor 0.9% Inj 250 ML IV.SIG SCH (23:00)
[2018-07-20 23:27] VITALS: RESP 16; O2SAT 96
[2018-07-21] MEDS: Vancomycin Inj 1,250 MG in Sodium Chlor 0.9% Inj 250 ML IV.SIG SCH (03:27)
[2018-07-21] MEDS: Piperacil/Tazo 3.375 GM Premix 50 ML IV.SIG SCH ×2 (04:43→09:57)
[2018-07-21 06:06] LABS: Baso % (Auto) 0.6 % (0.0-2.0); Eos # (Auto) 0.4 th/mm3 (0.0-0.4); Eos % (Auto) 6.8 % (0.0-4.0); Hematocrit 41.8 % (39.0-51.0); Hemoglobin 14.8 gm/dL (13.0-17.0); Lymph # (Auto) 1.4 th/mm3 (1.0-4.8); Lymph % (Auto) 25.3 % (9.0-44.0); Mean Corpuscular HGB Conc 35.3 % (32.0-36.0); Mean Corpuscular Hemoglobin 33.5 pg (27.0-34.0); Mono # (Auto) 0.5 th/mm3 (0.0-0.9); Mono % (Auto) 10.2 % (0.0-8.0); Neut # (Auto) 3.1 th/mm3 (1.8-7.7); Neut % (Auto) 57.1 % (16.0-70.0); Platelet Count 172 th/mm3 (150-450); Red Cell Distribution Width 12.9 % (11.6-17.2); White Blood Count 5.4 th/mm3 (4.0-11.0)
[2018-07-21 06:26] LABS: Carbon Dioxide 26.9 meq/L (21.0-32.0); Potassium 4.5 meq/L (3.5-5.1)
[2018-07-21 09:01] VITALS: BP 112/67; PULSE 65; TEMP 98.1
[2018-07-21] MEDS: Senna/Docusate Sodium 8.6/50 MG Tablet PO SCH (09:56)
--- NOTE | 2018-07-21 11:08 | P.PNFP ---
Subjective Interval history: Patient seen and examined today. Patient reports that his right hand is improving. He notes that there is decreased pain, decreased swelling, increased range of motion. Notes normal sensation fingertip. Denies nausea, vomiting, fever, chills, abdominal pain, chest pain, shortness of breath , lightheadedness, dizziness. No acute events overnight. No other complaints today. <ParamjitKelechi - 07/21/18 12:33> Results - Labs Result diagrams: 07/21/18 05:28 07/21/18 05:28 <Dale Houston - 07/21/18 15:28> Abnormal lab results 07/21/18 07/21/18 Range/Units 05:28 05:28 RBC 4.40 L (4.50-5.90) mil/mm3 [place] % (Auto) 10.2 H (0.0-8.0) % Eos % (Auto) 6.8 H (0.0-4.0) % Chloride 108 H (98-107) meq/L Estimated GFR 66 L (>89) mL/min Random Glucose 114 H (74-106) mg/dL Calcium 8.0 L D (8.5-10.1) mg/dL Short CBC 07/21/18 Range/Units 05:28 WBC 5.4 (4.0-11.0) th/mm3 Hgb 14.8 (13.0-17.0) gm/dL Hct 41.8 (39.0-51.0) % Plt Count 172 (150-450) th/mm3 [facility] 07/21/18 05:28 Sodium 140 Potassium 4.5 Chloride 108 H Carbon Dioxide 26.9 BUN 17 Creatinine 1.19 Calcium 8.0 L D <Dale Houston - 07/21/18 15:28> Abnormal lab results 07/21/18 07/21/18 Range/Units 05:28 05:28 RBC 4.40 L (4.50-5.90) mil/mm3 [place] % (Auto) 10.2 H (0.0-8.0) % Eos % (Auto) 6.8 H (0.0-4.0) % Chloride 108 H (98-107) meq/L Estimated GFR 66 L (>89) mL/min Random Glucose 114 H (74-106) mg/dL Calcium 8.0 L D (8.5-10.1) mg/dL Short CBC 07/21/18 Range/Units 05:28 WBC 5.4 (4.0-11.0) th/mm3 Hgb 14.8 (13.0-17.0) gm/dL Hct 41.8 (39.0-51.0) % Plt Count 172 (150-450) th/mm3 BMP 07/21/18 05:28 Sodium 140 Potassium 4.5 Chloride 108 H Carbon Dioxide 26.9 BUN 17 Creatinine 1.19 Calcium 8.0 L D <Gregory Yusuf - 07/21/18 11:08> Physical Exam Vital signs: Vital Signs 07/20/18 16:00 07/20/18 20:00 07/20/18 23:26 Temperature 97.9 F 97.7 F 98 F Pulse Rate 57 L 72 69 Respiratory Rate 16 17 16 Blood Pressure 136/82 142/81 H 125/76 Pulse Oximetry 98 95 96 07/21/18 04:00 07/21/18 08:00 Temperature 97.9 F 98.1 F Pulse Rate 70 65 Respiratory Rate 16 16 Blood Pressure 129/79 112/67 Pulse Oximetry 96 96 Intake & Output 07/20/18 07/21/18 07/21/18 18:59 06:59 18:59 Intake Total 966.5 / 966.5 362.5 / 362.5 50 / 50 Balance 966.5 / 966.5 362.5 / 362.5 50 / 50 Intake: IV 416.5 / 416.5 362.5 / 362.5 50 / 50 Cleocin Inj 600 MG In NS Inj 104 / 104 100 ML @ 200 mls/hr IV.SIG Q8H [facility] Rx#:[id number] Zosyn 3.375 GM Premix 50 ML @ 50 / 50 100 / 100 50 / 50 100 mls/hr IV.SIG Q6H [facility] Rx#: [id number] Vancomycin Inj 1,250 MG In NS 262.5 / 262.5 262.5 / 262.5 Inj 250 ML @ 250 mls/hr IV.SIG Q12H [facility] Rx#:[id number] Oral 550 / 550 Other: # Voids 3 Date of Last Bowel Movement 07/19/18 07/19/18 <Dale Houston - 07/21/18 15:28> Vital Signs 07/20/18 12:00 07/20/18 16:00 07/20/18 20:00 Temperature 98.0 F 97.9 F 97.7 F Pulse Rate 62 57 L 72 Respiratory Rate 16 16 17 Blood Pressure 120/77 136/82 142/81 H Pulse Oximetry 96 98 95 07/20/18 23:26 07/21/18 04:00 07/21/18 08:00 Temperature 98 F 97.9 F 98.1 F Pulse Rate 69 70 65 Respiratory Rate 16 16 16 Blood Pressure 125/76 129/79 112/67 Pulse Oximetry 96 96 96 Intake & Output 07/20/18 07/21/18 07/21/18 18:59 06:59 18:59 Intake Total 966.5 / 966.5 362.5 / 362.5 50 / 50 Balance 966.5 / 966.5 362.5 / 362.5 50 / 50 Intake: IV 416.5 / 416.5 362.5 / 362.5 50 / 50 Cleocin Inj 600 MG In NS Inj 104 / 104 100 ML @ 200 mls/hr IV.SIG Q8H [facility] Rx#:[id number] Zosyn 3.375 GM Premix 50 ML @ 50 / 50 100 / 100 50 / 50 100 mls/hr IV.SIG Q6H [facility] Rx#: [id number] Vancomycin Inj 1,250 MG In NS 262.5 / 262.5 262.5 / 262.5 Inj 250 ML @ 250 mls/hr IV.SIG Q12H [facility] Rx#:[id number] Oral 550 / 550 Other: # Voids 3 Date of Last Bowel Movement 07/19/18 07/19/18 <Gregory Yusuf - 07/21/18 11:08> Narrative: GENERAL: Adult male sitting up in bed, resting comfortably, no acute distress. SKIN: Right hand wrapped, clean/dry/intact. Decreased swelling. Improved thumb abduction. Normal strength. HEAD: Normocephalic. EYES: No scleral icterus. No injection or drainage. NECK: Supple, trachea midline. No JVD. CARDIOVASCULAR: Regular rate and rhythm without murmurs, gallops, or rubs. Radial pulses intact bilaterally. RESPIRATORY: Breath sounds equal bilaterally. No accessory muscle use. MUSCULOSKELETAL: No cyanosis, or edema. Able to wiggle thumb and oppose to the fourth finger <Gregory Yusuf - 07/21/18 12:33> Assessment and Plan - Assessment (1) Cellulitis of hand Code(s): L03.119 - Cellulitis of unspecified part of limb Status: Acute <RosemarieDale - 07/21/18 15:28> (1) Cellulitis of hand Code(s): L03.119 - Cellulitis of unspecified part of limb Status: Acute Plan: Purulent drainage of wound at base of right thumb, palmar aspect. Exploration of infection by Dr. Holt 07/20/18. Received tetanus booster in ED. Hand MRI showed findings consistent with cellulitis with no evidence of abscess or osteomyelitis. Afebrile, WBC wnl, blood cultures - NGTD. -Vancomycin 1g q24h with pharmacy consult to adjust dosing accordingly -Acetaminophen 650 mg every 4 hours as needed for fever/ pain -[place] 5/325 every 4 hours as needed for pain -Rachel-Colace prn constipation while on opioids <Gregory Yusuf - 07/21/18 12:21> - Assessment and Plan Regular adult diet Oral fluids Monitor electrolytes and replace as needed <Gregory Yusuf - 07/21/18 12:33> - Attending Attestation See the residents documentation for details. I saw and evaluated the patient regarding the nolasco portions of this evaluation and agree with the residents findings and plans as written. Parts of this note were created using [employer] voice recognition software program. While efforts were made to correct any mistakes made by this software, some mistakes, errors, and omissions may remain in the final note that were not caught when the note was originally created. Plan of care was discussed and agreed upon with the patient as specifically documented in the above note. An opportunity to ask questions with explanation was provided. Patient voiced understanding on all information reviewed and discussed. <Dale Houston - 07/21/18 15:28>
[2018-07-22] MEDS ORDERED: Pharmacy Ordered Lab Info OTHER ONE (02:45)
== END 2018-07-21 15:56 | disposition home or self-care (01) ==
LOC: NEDA 15:48 → NEPC 15:48 → NEDA 23:06 → NEPFCDU 23:18
PROVIDERS: ADMIT Family Medicine; ATTEND Family Medicine
DX: Z23 Encounter for immunization; M25.441 Effusion, right hand; F17.200 Nicotine dependence, unspecified, uncomplicated; L03.113 Cellulitis of right upper limb